=== PATIENT | female | born 1990 | race African-American/Black ===

== ENCOUNTER 2016-12-17 18:29 | Outpatient (CLI) | payer OTHER ==
[2016-12-17 19:05] VITALS: BP 104/55
[2016-12-17 20:49] LABS: ADD MIUA? YES; BILIRUBIN NEGATIVE; BLOOD NEGATIVE; COLOR YELLOW ((YELLOW)); GLUCOSE (STRIP) NEGATIVE; KETONES NEGATIVE; LEUKOCYTES LARGE; NITRITE NEGATIVE; PROTEIN (STRIP) NEGATIVE; SPECIFIC GRAVITY 1.025 (1.000-1.030); UROBILINOGEN 0.2 MG/DL (0.2-1.0)
[2016-12-17 21:19] LABS: BACTERIA 1+ /HPF; CASTS NONE SEEN /LPF; CRYSTALS PRESENT; EPITHELIAL CELLS 2+ /HPF; MUCUS 3+ /LPF; RED BLOOD CELLS 0-5 /HPF (0-5); UCUL ADDED? NO; WHITE BLOOD CELLS 0-5 /HPF (0-5)
[2016-12-17 21:20] LABS: CALCIUM OXALATE CRYSTALS 1+ /HPF
[2016-12-17] MEDS ORDERED: INDOCIN25 MG PO (22:22)
[2016-12-17 22:27] LABS: CANDIDA DNA PROBE NEGATIVE; GARDNERELLA DNA PROBE POSITIVE; INTERNAL CONTROL VALID? YES
[2016-12-17 22:28] VITALS: BP 108/68
[2016-12-17] MEDS ORDERED: FLAGYL500 MG PO (22:30)
[2016-12-18 13:11] LABS: CHLAMYDIA TRACHOMATIS NEGATIVE; NEISSERIA GONORRHOEAE NEGATIVE
== END 2016-12-17 23:00 | disposition home or self-care (01) ==
LOC: LDRP-OP 18:29 → 2WEST 18:30
PROVIDERS: Midwife; Obstetrics & Gynecology
DX: O60.02 Preterm labor without delivery, second trimester (principal); Z3A.20 20 weeks gestation of pregnancy; O30.042 Twin pregnancy, dichorionic/diamniotic, second trimester; O99.342 Other mental disorders complicating pregnancy, second trimester; F41.8 Other specified anxiety disorders
CPT/HCPCS: 59025; 81003; 87480; 87491; 87510; 87591; 87660; G0378

== ENCOUNTER 2017-04-05 01:36 | Inpatient (IN) | payer OTHER ==
[2017-04-05] VITALS (9 sets, daily range): BP systolic 116–139; BP diastolic 57–88
[~2017-04-05 01:36] MED LIST: FLAGYL500 MG PO; INDOCIN25 MG PO
[2017-04-05 02:10] LABS: BASE EXCESS -0.4 mEq/L (-3 to +3); BICARBONATE 26.4 mEq/L (22-26); CARBOXY HGB 0.8 % (0-5); METHEMOGLOBIN 1.5 % (0-1.5); PCO2 50 mm Hg (35-45); pH 7.33 (7.35-7.45)
[2017-04-05 02:12] LABS: PO2 < 28 mm Hg (80-100); SITE CORD
[2017-04-05 02:13] LABS: BASE EXCESS -2.3 mEq/L (-3 to +3); BICARBONATE 24.2 mEq/L (22-26); CARBOXY HGB 1.3 % (0-5); PCO2 47 mm Hg (35-45); pH 7.32 (7.35-7.45)
[2017-04-05 02:16] LABS: PO2 < 28 mm Hg (80-100)
[2017-04-05 02:16] LABS: COMMENTS - BLOOD GASES C
[2017-04-05 02:17] LABS: COMMENTS - BLOOD GASES C; SITE CORD VENOUS
[2017-04-05] MEDS ORDERED: PRENATAL TABLE1 EAC3 PO (06:20)
[2017-04-06 06:57] LABS: EOSINOPHIL (%) 2.4 % (0-5); EOSINOPHIL COUNT 0.2 K/uL (0-0.3); HEMATOCRIT 32.6 % (36.0-46.0); IMMATURE GRANULOCYTE (%) 0.9 % (0.0-0.7); IMMATURE GRANULOCYTE COUNT 0.1 K/uL; MCH 28.9 PG (29.0-34.0); MCHC 33.4 G/DL (30.0-36.0); MCV 86.5 FL (83-99); MEAN PLAT.VOLUME 11.2 uM^3 (9.5-12.4); MONOCYTE (%) 6.7 % (3-12); MONOCYTE COUNT 0.6 K/uL (0-0.8); PLATELET COUNT 133 K/uL (156-360); RBC DIS.WIDTH-CV 13.1 % (11.8-14.6); RBC DIS.WIDTH-SD 41.2 % (39-53); RED BLOOD COUNT 3.77 M/uL (3.80-5.20)
[2017-04-06 15:38] VITALS: BP 123/68
[2017-04-06 23:19] VITALS: BP 107/62
[2017-04-07 08:15] VITALS: BP 112/59
[2017-04-07] MEDS ORDERED: MOTRIN800 MG PO (08:53)
[2017-04-07 11:20] VITALS: BP 115/64
== END 2017-04-07 13:55 | disposition home or self-care (01) | DRG 775 ==
LOC: LDRP-OP 01:36 → 2WEST 01:37 → LDRP-OP 05-31 00:08
PROVIDERS: Midwife; Obstetrics & Gynecology
DX: O30.043 Twin pregnancy, dichorionic/diamniotic, third trimester (principal); O60.14X1 Preterm labor third trimester with preterm delivery third trimester, fetus 1; O60.14X2 Preterm labor third trimester with preterm delivery third trimester, fetus 2; O99.02 Anemia complicating childbirth; D64.9 Anemia, unspecified; Z3A.36 36 weeks gestation of pregnancy; Z37.2 Twins, both liveborn; O99.343 Other mental disorders complicating pregnancy, third trimester; F32.9 Major depressive disorder, single episode, unspecified; F41.9 Anxiety disorder, unspecified; O99.353 Diseases of the nervous system complicating pregnancy, third trimester; G43.909 Migraine, unspecified, not intractable, without status migrainosus
CPT/HCPCS: 36600; 82803; 85025; 90686; J1050; J2590

== ENCOUNTER 2017-08-09 11:40 | Emergency (ER) | payer OTHER ==
[~2017-08-09] VITALS: Ht 162.6 cm; Wt 69.4 kg
[~2017-08-09 11:40] MED LIST changes: +MOTRIN800 MG PO; +PRENATAL TABLE1 EAC3 PO
[2017-08-09 14:20] VITALS: BP 108/66
== END 2017-08-09 14:21 | disposition home or self-care (01) ==
LOC: EME 11:40
DX: S93.601A Unspecified sprain of right foot, initial encounter (principal); X58.XXXA Exposure to other specified factors, initial encounter; Y93.72 Activity, wrestling; F17.200 Nicotine dependence, unspecified, uncomplicated
CPT/HCPCS: 73610; 73630; 99281; 99284